=== PATIENT | female | born 1925 ===

== ENCOUNTER 2016-12-11 12:15 | Observation (INO) | payer OTHER ==
[2016-12-11 12:19] VITALS: BMI 23.8
--- NOTE | 2016-12-11 12:41 | ED PDOC ---
Arrival/HPI - General Chief Complaint: Finger,Hand,&Wrist Time Seen by Provider: 12/11/16 12:16 Historian: Patient - History of Present Illness Narrative History of Present Illness (Text): 12/11/16 12:30 A 89 year old female, whose past medical history includes diabetes, hypertension , dementia and CHF, was brought into the emergency department by EMS from longterm for infected right middle finger. Patient had her nails done at the longterm 1 week ago. Staff reported patient has been biting her nails a lot since. Patient notes swelling, pain and drainage from finger. Patient denies any fever, chills or any other complaints. PMD: Dr. Gomez Time/Duration: 1 week Symptom Course: Worsening Quality: Other Context: Home (halfway) Past Medical History - Provider Review Nursing Documentation Reviewed: Yes - Infectious Disease Hx of Infectious Diseases: None - Cardiac Hx Congestive Heart Failure: Yes Hx Hypertension: Yes - Neurological Hx Alzheimer's Disease: Yes Hx Dementia: Yes - Endocrine/Metabolic Hx Diabetes Mellitus Type 2: Yes - Musculoskeletal/Rheumatological Hx Osteoporosis: Yes - Gastrointestinal Hx Gastroesophageal Reflux: Yes - Psychiatric Hx Anxiety: Yes Hx Substance Use: No Family/Social History - Physician Review Nursing Documentation Reviewed: Yes Family/Social History: No Known Family HX Smoking Status: Never Smoked Hx Alcohol Use: No Hx Substance Use: No Allergies/Home Meds Allergies/Adverse Reactions: Allergies No Known Allergies Allergy (Verified 12/11/16 12:20) Home Medications: Home Meds Medication Instructions Recorded Confirmed Digoxin [Lanoxin] 1 tab PO DAILY 12/11/16 12/11/16 Donepezil [Aricept] 1 tab PO DAILY 12/11/16 12/11/16 Furosemide [Lasix] 1 tab PO DAILY 12/11/16 12/11/16 Ibuprofen [Motrin Tab] 1 tab PO Q6H PRN 12/11/16 12/11/16 LORazepam [Ativan] 1 tab PO HS 12/11/16 12/11/16 Ranitidine HCl [Zantac] 1 tab PO BID 12/11/16 12/11/16 Sitagliptin Phos/Metformin HCl 1 cap PO DAILY 12/11/16 12/11/16 [Janumet 50-500 mg Tablet] [id number] [Cardizem] 1 tab PO BID 12/11/16 12/11/16 Review of Systems - Physician Review All systems were reviewed & negative as marked: Yes - Review of Systems Constitutional: absent: Fevers, Night Sweats Skin: Other (Infected right middle finger) Physical Exam Vital Signs Reviewed: Yes Vital Signs Temp Pulse Resp BP Pulse Ox 12/11/16 13:17 79 18 127/64 98 12/11/16 12:21 98.2 F 84 18 128/61 97 Temperature: Afebrile Blood Pressure: Normal Pulse: Regular Respiratory Rate: Normal Appearance: Positive for: Well-Appearing, Non-Toxic, Comfortable, Other ( Elderly Latin female, angolan speaking) Pain Distress: None Mental Status: Positive for: Alert and Oriented X 3 - Systems Exam Head: Present: Atraumatic, Normocephalic Pupils: Present: PERRL Conjunctiva: Present: Normal Mouth: Present: Moist Mucous Membranes Pharnyx: Present: Normal. No: ERYTHEMA, EXUDATE Respiratory/Chest: Present: Clear to Auscultation, Good Air Exchange. No: Respiratory Distress, Accessory Muscle Use Cardiovascular: Present: Normal S1, S2. No: Murmurs Abdomen: Present: Normal Bowel Sounds. No: Tenderness, Distention, Peritoneal Signs Upper Extremity: Present: Normal ROM (Full ROM), NORMAL PULSES, Tenderness ( Tenderness to palpation of the entire distal phalanx), Swelling (Right middle finger with diffuse swelling from proximal and middle phalanx), Erythema (Right middle finger with diffuse erythema from proximal and middle phalanx). No: Cyanosis, Edema Neurological: Present: GCS=15, CN II-XII Intact, Speech Normal Skin: Present: Warm, Dry, Normal Color. No: Rashes Psychiatric: Present: Alert, Oriented x 3, Normal Insight, Normal Concentration Medical Decision Making ED Course and Treatment: 12/11/16 12:30 Impression: A 89 year old female sent in from longterm for infected right middle finger. Differential: paronychia +/- felon Plan: -- Chest xray -- EKG -- Right finger xray -- Labs -- Blood culture -- Reassess and disposition Progress Notes: 12/11/16 13:40 EKG shows sinus bradycardia at 53 BPM with PAC's, LAD, normal intervals, no ST/ T changes. Interpreted by me. 12/11/16 14:49 Patient with noted findings. Case discussed with Dr. Savage, who agrees that it is likely a paronychia without a felon - he did an I&D here in the ED. Given the extensive cellulitis associated with it, she will also need iv antibiotics and admission. Case discussed with Dr. Gomez. - Lab Interpretations Lab Results: 12/11/16 13:10 12/11/16 13:10 Lab Results 12/11/16 13:10: Sodium 138, Potassium 4.3, Chloride 98, Carbon Dioxide 30, Anion Gap 14, BUN 10, Creatinine 0.8, Est GFR ( Amer) > 60, Est GFR (Non- Af Amer) > 60, Random Glucose 91, Calcium 9.3, Magnesium 2.0, Total Bilirubin 0.3, AST 23, ALT 22, Alkaline Phosphatase 93, Lactate Dehydrogenase 396, Total Creatine Kinase 42, Troponin I < 0.01, Total Protein 7.7, Albumin 3.8, Globulin 3.8, Albumin/Globulin Ratio 1.0 L, Lipase 287 12/11/16 13:10: PT 11.2, INR 1.04, APTT 31.7 H 12/11/16 13:10: WBC 11.1 H, RBC 4.48, Hgb 12.9, Hct 39.1, MCV 87.3, MCH 28.8, MCHC 33.0, RDW 13.4, Plt Count 222, MPV 10.8, Gran % 73.9 H, Lymph % (Auto) 15.1 L, [place] % (Auto) 9.4 H, Eos % (Auto) 1.5, Baso % (Auto) 0.1, Gran # 8.18 H , Lymph # 1.7, [place] # 1.0 H, Eos # 0.2, Baso # 0.01 I have reviewed the lab results: Yes - RAD Interpretation Narrative RAD Interpretations (Text): 12/11/16 14:51 R 3rd middle finger: STS at the distal phalanx Radiology Orders: 12/11/16 13:06 HAND RIGHT 3RD DIGIT (FINGER) [RAD] Stat 12/11/16 13:07 CHEST TWO VIEWS (PA/LAT) [RAD] Stat - Medication Orders Current Medication Orders: Ampicillin Sodium/Sulbactam (Sodium 3 gm/ Sodium Chloride) 100 mls @ 100 mls/ hr IVPB STAT STA PRN Reason: Protocol Stop: 12/11/16 15:19 Vancomycin HCl 1 gm/ Sodium (Chloride) 250 mls @ 133.333 mls/hr IV STAT STA PRN Reason: Protocol Stop: 12/11/16 16:12 Discontinued Medications Bupivacaine HCl (Marcaine 0.5%) Confirm Administered Dose 30 ml .ROUTE .STK-MED ONE Stop: 12/11/16 13:15 Lidocaine HCl (Lidocaine 1% (20ml)) Confirm Administered Dose 20 ml .ROUTE .STK- MED ONE Stop: 12/11/16 13:15 - Scribe Statement The provider has reviewed the documentation as recorded by the Rhonda Roque Provider Scribe Attestation: All medical record entries made by the Scribe were at my direction and personally dictated by me. I have reviewed the chart and agree that the record accurately reflects my personal performance of the history, physical exam, medical decision making, and the department course for this patient. I have also personally directed, reviewed, and agree with the discharge instructions and disposition. Disposition/Present on Arrival - Present on Arrival Any Indicators Present on Arrival: No History of DVT/PE: No History of Uncontrolled Diabetes: No Urinary Catheter: No History of Decub. Ulcer: No History Surgical Site Infection Following: None - Disposition Have Diagnosis and Disposition been Completed?: Yes Diagnosis: Paronychia of finger of right hand Disposition: HOSPITALIZED Disposition Time: 14:14 Patient Plan: Admission Condition: FAIR
[2016-12-11] MEDS ORDERED: Lidocaine 1% Inj (20ml) ONE (13:14)
[2016-12-11] MEDS ORDERED: Bupivacaine 0.5% Inj(30mL) ONE (13:14)
[2016-12-11 13:43] LABS: BASO # 0.01 K/mm3 (0.0-2.0); BASO % 0.1 % (0.0-3.0); EOS # 0.2 (0.0-0.7); EOS % 1.5 % (1.5-5.0); GRAN # 8.18 (1.4-6.5); GRAN % 73.9 % (50.0-68.0); HEMOGLOBIN 12.9 gm/dL (12.0-16.0); LYMPH # 1.7 (1.2-3.4); LYMPH % 15.1 % (22.0-35.0); MEAN CELL VOLUME 87.3 fL (80.0-105.0); MEAN CORPUSCULAR HEMOGLOBIN 28.8 pg (25.0-35.0); MEAN PLATELET VOLUME 10.8 fl (7.0-11.0); MONO % 9.4 % (1.0-6.0); PLATELET COUNT 222 10^3/uL (120.0-450.0); RBC 4.48 10^6/uL (3.5-6.1); RED CELL DISTRIBUTION WIDTH 13.4 % (11.5-14.5); WHITE BLOOD COUNT 11.1 10^3/ul (4.5-11.0)
[2016-12-11 13:49] LABS: INR 1.04 (0.93-1.08); PARTIAL THROMBOPLASTIN TIME 31.7 Seconds (23.7-30.8); PROTHROMBIN TIME 11.2 Seconds (9.9-11.8)
[2016-12-11 13:50] LABS: ALBUMIN 3.8 g/dL (3.0-4.8); ALT/SGPT 22 U/L (7-56); AST/SGOT 23 U/L (15-39); BLOOD UREA NITROGEN 10 mg/dL (7-21); CALCIUM 9.3 mg/dL (8.4-10.5); GFR AFRICAN-AMERICAN > 60; GFR NON-AFRICAN AMERICAN > 60; LIPASE 287 U/L (23-300)
[2016-12-11 14:10] LABS: TROPONIN I < 0.01 ng/mL
[2016-12-11] MEDS ORDERED: Ampicillin/Sulbactam 3 GM in Sodium Chloride 0.9% 100 ML IVPB STA (14:20)
--- NOTE | 2016-12-11 14:57 | RAD ---
PROCEDURE: Right Hand Radiographs. HISTORY: R 3rd finger infection COMPARISON: None. FINDINGS: BONES: Normal. No fracture. No evidence of osteomyelitis JOINTS: Normal. No osteoarthritic changes. SOFT TISSUES: Soft tissue swelling OTHER FINDINGS: None. IMPRESSION: Soft tissue swelling with no evidence of osteomyelitis
--- NOTE | 2016-12-11 14:58 | RAD ---
HISTORY: finger infection, admission COMPARISON: No prior. TECHNIQUE: Chest PA and lateral FINDINGS: LUNGS: No active pulmonary disease. PLEURA: No significant pleural effusion identified. No pneumothorax apparent. CARDIOVASCULAR: Normal. OSSEOUS STRUCTURES: No significant abnormalities. VISUALIZED UPPER ABDOMEN: Normal. OTHER FINDINGS: None. IMPRESSION: No active disease.
[2016-12-11] MEDS ORDERED: Vancomycin 750mg 750 MG/250 ML BAG IVPB SCH (17:00)
[2016-12-11] MEDS: Ampicillin/Sulbactam 3 GM in Sodium Chloride 0.9% 100 ML IVPB SCH ×2 (18:00→23:45)
[2016-12-11] MEDS: Vancomycin 1gm in NS 250ml 1 GM/250 ML BAG IVPB SCH (20:27)
[2016-12-11] MEDS ORDERED: Pneumococcal 23-Valent Vaccine IM ONE (21:30)
[2016-12-12] MEDS: Ampicillin/Sulbactam 3 GM in Sodium Chloride 0.9% 100 ML IVPB SCH ×4 (05:33→23:09)
[2016-12-12] MEDS: Vancomycin 1gm in NS 250ml 1 GM/250 ML BAG IVPB SCH ×2 (07:04→21:11)
--- NOTE | 2016-12-12 07:08 | CP.PCM.HP ---
<Claudette Wilks - Last Filed: 12/12/16 09:19> History of Present Illness - History of Present Illness History of Present Illness: CC: Sent from [facility] for hand infection Patient is an 89 y/o with pmh of htn, NIDDM2, dementia and chf sent fro, [facility] 2nd to right middle finger infection. As per nursing staff, patient had her nails done few days ago, and developed swelling and erythema of the finger. Patient is confused and non verbal, however shows signs of distress of the finger. H&P and ROS is limited due to mental status. PMH: As mentioned above. PSH: unable to obtain Social: From [facility]. Present on Admission - Present on Admission Any Indicators Present on Admission: No History of DVT/PE: No History of Uncontrolled Diabetes: No Urinary Catheter: No Decubitus Ulcer Present: No Review of Systems - Review of Systems Systems not reviewed;Unavailable: Dementia Past Patient History - Infectious Disease Hx of Infectious Diseases: None - Past Social History Smoking Status: Unknown If Ever Smoked Alcohol: None Home Situation {Lives}: Shelter - CARDIAC Hx Cardiac Disorders: Yes Hx Congestive Heart Failure: Yes Hx Hypertension: Yes - PULMONARY Hx Respiratory Disorders: No - NEUROLOGICAL Hx Neurological Disorder: Yes Hx Alzheimer's Disease: Yes Hx Dementia: Yes - HEENT Hx HEENT Problems: No - RENAL Hx Chronic Kidney Disease: No - ENDOCRINE/METABOLIC Hx Endocrine Disorders: Yes Hx Diabetes Mellitus Type 2: Yes - HEMATOLOGICAL/ONCOLOGICAL Hx Blood Disorders: No - INTEGUMENTARY Hx Dermatological Problems: Yes Other/Comment: PARONYCHIA OF R MID FINGER.POST I/D - MUSCULOSKELETAL/RHEUMATOLOGICAL Hx Musculoskeletal Disorders: Yes Hx Falls: (UNKNOWN) Hx Osteoporosis: Yes Hx Unsteady Gait: Yes - GASTROINTESTINAL Hx Gastrointestinal Disorders: Yes Hx Gastroesophageal Reflux: Yes HX Swallowing Problems: Yes (ON PUREED DIET AT [facility]) - GENITOURINARY/GYNECOLOGICAL Hx Genitourinary Disorders: Yes Hx Incontinence: Yes - PSYCHIATRIC Hx Psychophysiologic Disorder: Yes Hx Anxiety: Yes Hx Substance Use: No (UNKNOWN) Meds Allergies/Adverse Reactions: Allergies Allergy/AdvReac Type Severity Reaction Status Date / Time No Known Allergies Allergy Verified 12/11/16 15:13 Physical Exam - Constitutional Appears: No Acute Distress, Cachectic, Chronically Ill - Head Exam Head Exam: ATRAUMATIC, NORMAL INSPECTION, NORMOCEPHALIC - Eye Exam Eye Exam: EOMI, Normal appearance, PERRL. absent: Scleral icterus Pupil Exam: NORMAL ACCOMODATION, PERRL - ENT Exam ENT Exam: Mucous Membranes Moist, Normal Exam - Neck Exam Neck exam: Positive for: Normal Inspection. Negative for: Lymphadenopathy - Respiratory Exam Respiratory Exam: Clear to Auscultation Bilateral, NORMAL BREATHING PATTERN. absent: Rales, Rhonchi, Wheezes, Stridor - Cardiovascular Exam Cardiovascular Exam: REGULAR RHYTHM, +S1, +S2, Systolic Murmur - GI/Abdominal Exam GI & Abdominal Exam: Distended, Normal Bowel Sounds. absent: Firm, Guarding, Soft, Tenderness - Extremities Exam Extremities exam: Negative for: pedal edema - Back Exam Back exam: NORMAL INSPECTION - Neurological Exam Neurological exam: CN II-XII Intact, Reflexes Normal Additional comments: Demented. - Psychiatric Exam Psychiatric exam: Anxious - Skin Additional comments: Right mid finger with diffuse erythema, and edema, warm to touch. Results - Vital Signs Recent Vital Signs: Last Vital Signs Temp 98.2 F 12/11/16 21:08 Pulse 60 12/11/16 21:08 Resp 18 12/11/16 21:08 BP 146/68 12/11/16 21:08 Pulse Ox 95 12/11/16 16:20 - Labs Result Diagrams: 12/12/16 08:40 12/12/16 08:40 Assessment & Plan - Assessment and Plan (Free Text) Assessment: 1) Right middle finger cellulites r/o osteomyolitis versus herpetic sis 2) htn 3) DM 4) chf 5) Dementia Plan: X-ray of the right middle finger revealed soft tissue swelling. Will obtain CT to r/o osteomyolitis. Currently on vanco and Unasyn. Patient had mild leukocysotis, but is afebrile. Blood culture and wound cultures pending. ID and orthopedic following. ID added famvir for possible herpetic lesion. Will continue asa, digoxin, Cardizem and Lasix for htn and CHF. Continue with aricept for dementia, Ativan for agitation. ISS for DM. Pepcid and SCDs for DVT and gi prophylaxis. Patient seen, examined and case discussed with Dr Gomez. - Date & Time Date: 12/12/16 Time: 07:20 <Chalo Gomez S - Last Filed: 12/13/16 08:30> Results - Vital Signs Recent Vital Signs: Last Vital Signs Temp 98.2 F 12/13/16 07:57 Pulse 60 12/13/16 07:57 Resp 20 12/13/16 07:57 BP 131/64 12/13/16 07:57 Pulse Ox 96 12/13/16 07:57 - Labs Result Diagrams: 12/13/16 08:00 12/12/16 08:40 Labs: Laboratory Results - last 24 hr 12/12/16 12/12/16 12/13/16 08:40 08:40 08:00 WBC 8.6 D 8.7 RBC 4.63 4.47 Hgb 13.2 12.8 Hct 39.9 38.2 MCV 86.2 85.5 MCH 28.5 28.6 MCHC 33.1 33.5 RDW 13.3 13.3 Plt Count 200 212 MPV 10.6 10.4 Gran % 72.8 H 69.6 H Lymph % (Auto) 16.5 L 19.7 L [place] % (Auto) 8.4 H 8.8 H Eos % (Auto) 2.1 1.7 Baso % (Auto) 0.2 0.2 Gran # 6.28 6.03 Lymph # 1.4 1.7 [place] # 0.7 H 0.8 H Eos # 0.2 0.2 Baso # 0.02 0.02 Sodium 137 Potassium 4.0 Chloride 99 Carbon Dioxide 28 Anion Gap 14 BUN 9 Creatinine 0.7 Est GFR ( Amer) > 60 Est GFR (Non-Af Amer) > 60 Random Glucose 104 Calcium 9.0 Assessment & Plan - Assessment and Plan (Free Text) Plan: Pt seen and examimed. Note of the resident was reviewed and I agree with it. The pt was seen at [facility] and sent to the hospital for evaluation. She failed outpt treatement. She has advanced dementia and Delerium. R/O Osteo with CT. ID evaluation, spoke to ID to r/o Moshe Pierre as well. Follow labs. Unable to call family as the number was not in chart.
--- NOTE | 2016-12-12 07:57 | CARD ---
APPROVED REPORT EKG Measurement Heart [id number] <Conclusion> Atrial fibrillation with slow ventricular response Left axis deviation, LAHB Low voltage QRS PRWP NSSTW changes
[2016-12-12 08:57] LABS: BASO # 0.02 K/mm3 (0.0-2.0); BASO % 0.2 % (0.0-3.0); EOS # 0.2 (0.0-0.7); EOS % 2.1 % (1.5-5.0); GRAN # 6.28 (1.4-6.5); GRAN % 72.8 % (50.0-68.0); HEMOGLOBIN 13.2 gm/dL (12.0-16.0); LYMPH # 1.4 (1.2-3.4); LYMPH % 16.5 % (22.0-35.0); MEAN CELL VOLUME 86.2 fL (80.0-105.0); MEAN CORPUSCULAR HEMOGLOBIN 28.5 pg (25.0-35.0); MEAN CORPUSCULAR HGB CONC 33.1 g/dl (31.0-37.0); MEAN PLATELET VOLUME 10.6 fl (7.0-11.0); MONO # 0.7 (0.1-0.6); MONO % 8.4 % (1.0-6.0); PLATELET COUNT 200 10^3/uL (120.0-450.0); RBC 4.63 10^6/uL (3.5-6.1); RED CELL DISTRIBUTION WIDTH 13.3 % (11.5-14.5); WHITE BLOOD COUNT 8.6 10^3/ul (4.5-11.0)
[2016-12-12 09:06] LABS: BLOOD UREA NITROGEN 9 mg/dL (7-21); GFR AFRICAN-AMERICAN > 60; GFR NON-AFRICAN AMERICAN > 60
--- NOTE | 2016-12-12 09:38 | CON ---
DATE: 12/11/2016 ORTHOPEDIC CONSULT AND PROCEDURE REPORT The patient is in the emergency room brought in from [facility] for paronychia, which is infection of the nail bed of the third digit right hand. Paronychia with drainage and inflammation and swelling, but no evidence of felon as the pulp of the finger is soft. So with local anesthesia, we did a digital block with xylocaine and Marcaine to anesthetize the third digit of the right hand and gap will be undermined the paronychial area to express the fluid that was in there which is serosanguineous and turbid fluid. The process has been going on for about a week, and hopefully, this will accomplish some resolution of her infection along with the antibiotics. We will get an ID consult, and I was unable to put a packing because the patient is very uncooperative and like a usp patient, she does not communicate well and she keeps on biting her finger nail that could add to the problem that she has, so I put an extra large dressing on the right hand like a mitten to protect her from herself. We will get the culture of the infcted fluid to come back and ID consult and treat the infection until it is resolved and get an x-ray to see if any bone involvement. It is about 2 o'clock in the afternoon. Umer Savage DO JORGE
[2016-12-12] MEDS ORDERED: Non Formulary Medication (Calcium Carbonate/Vitamin D3 [Calcium 600 + Vit D Tablet] 1 TAB) PO SCH (10:00)
[2016-12-12] MEDS ORDERED: Enoxaparin 40 mg Syringe SC SCH (10:00)
--- NOTE | 2016-12-12 11:12 | CT ---
PROCEDURE: CT of the right hand without contrast HISTORY: right 3rd finger, r/o osteomyolitis COMPARISON: X-ray 12/11/2016 TECHNIQUE: CT of the right hand was performed with sagittal and coronal reconstructions. FINDINGS: There is soft tissue swelling in the 3rd digit. There is no bony destruction to suggest osteomyelitis. There is no fracture or foreign body. IMPRESSION: Soft tissue swelling 3rd digit. The study is otherwise negative
[2016-12-12] MEDS: Insulin Lispro (humaLOG) LOW Coverage SC SCH ×3 (11:56→22:46)
[2016-12-12] MEDS: Digoxin 125 mcg (0.125 mg) Tab PO SCH ×2 (11:58→17:29)
--- NOTE | 2016-12-12 15:43 | CP.PCM.CON ---
History of Present Illness - History of Present Illness History of Present Illness: 89 year old female with PMH of DM, HTN, dementia, CAD, chronic CHF was brought in from the half-way for infection of her right middle finger which she apparently has been biting. There is no note of animal contact, no vomiting, no fevers, no diarrhea. Infectious Diseases consult is requested to further evaluate and manage. Review of Systems - Review of Systems All systems: reviewed and no additional remarkable complaints except (as per HPI ) Past Patient History - Infectious Disease Hx of Infectious Diseases: None - Past Social History Smoking Status: Never Smoked - CARDIAC Hx Congestive Heart Failure: Yes Hx Hypertension: Yes - NEUROLOGICAL Hx Alzheimer's Disease: Yes Hx Dementia: Yes - ENDOCRINE/METABOLIC Hx Diabetes Mellitus Type 2: Yes - MUSCULOSKELETAL/RHEUMATOLOGICAL Hx Osteoporosis: Yes - GASTROINTESTINAL Hx Gastroesophageal Reflux: Yes - PSYCHIATRIC Hx Anxiety: Yes Hx Substance Use: No Meds Allergies/Adverse Reactions: Allergies Allergy/AdvReac Type Severity Reaction Status Date / Time No Known Allergies Allergy Verified 12/11/16 15:13 - Medications Medications: Current Medications Vancomycin HCl 1 gm/ Sodium (Chloride) 250 mls @ 133.333 mls/hr IV STAT STA PRN Reason: Protocol Stop: 12/11/16 16:12 Physical Exam - Constitutional Appears: Non-toxic, No Acute Distress - Head Exam Head Exam: NORMAL INSPECTION - ENT Exam ENT Exam: Mucous Membranes Moist - Neck Exam Neck exam: Negative for: Meningismus - Respiratory Exam Respiratory Exam: Decreased Breath Sounds - Cardiovascular Exam Cardiovascular Exam: +S1, +S2 - GI/Abdominal Exam GI & Abdominal Exam: Soft. absent: Tenderness - Extremities Exam Additional comments: right hand with dressing in place Results - Vital Signs Recent Vital Signs: Last Vital Signs Temp 98.2 F 12/11/16 12:21 Pulse 74 12/11/16 15:10 Resp 18 12/11/16 15:10 BP 125/68 12/11/16 15:10 Pulse Ox 98 12/11/16 15:10 - Labs Result Diagrams: 12/12/16 08:40 12/12/16 08:40 Assessment & Plan - Assessment and Plan (Free Text) Plan: Assessment Right hand 3rd digit skin and skin structure infection, R/O herpetic sis DM HTN dementia CAD chronic CHF Plan Patient has been started on Vancomycin and Unasyn; also added Famciclovir; follow up wound and blood cx will monitor clinically
--- NOTE | 2016-12-12 22:03 | CP.PCM.PN ---
Subjective - Date & Time of Evaluation Date of Evaluation: 12/12/16 Time of Evaluation: 20:30 - Subjective Subjective: Patient seen because she is confused and combative,has pulled out her iv s 3 times today.She needs the iv line for iv antibiotics. She is admitted for an infected R middle finger. Patient is on an Avasys moniter. PMH:DM,HTN,Dementia,CAD,Chonic CHF Objective - Vital Signs/Intake and Output Vital Signs (last 24 hours): Temp Pulse Resp BP Pulse Ox 98.1 F 58 L 20 132/64 96 12/12/16 16:30 12/12/16 17:20 12/12/16 16:30 12/12/16 17:20 12/12/16 16:30 Intake and Output: 12/12/16 12/13/16 18:59 06:59 Intake Total 180 Balance 180 - Medications Medications: Current Medications Ascorbic Acid (Vitamin C 500 Mg Tab) 500 mg PO DAILY [facility] Last Admin: 12/12/16 11:54 Dose: 500 mg Aspirin (Aspirin Chewable) 81 mg PO DAILY [facility] Last Admin: 12/12/16 11:54 Dose: 81 mg Digoxin (Lanoxin) 0.125 mg PO 1400 [facility] Last Admin: 12/12/16 17:29 Dose: Not Given Diltiazem HCl (Cardizem) 60 mg PO BID [facility] Last Admin: 12/12/16 17:20 Dose: 60 mg Donepezil HCl (Aricept) 10 mg PO DAILY [facility] Last Admin: 12/12/16 11:55 Dose: 10 mg Famciclovir (Famvir) 500 mg PO Q8 [facility] Last Admin: 12/12/16 17:35 Dose: 500 mg Famotidine (Pepcid) 20 mg PO 1000,2200 [facility] Last Admin: 12/12/16 11:55 Dose: 20 mg Furosemide (Lasix) 40 mg PO DAILY [facility] Last Admin: 12/12/16 11:54 Dose: 40 mg Ampicillin Sodium/Sulbactam (Sodium 3 gm/ Sodium Chloride) 100 mls @ 200 mls/ hr IVPB Q6 TJ PRN Reason: Protocol Last Admin: 12/12/16 17:35 Dose: 200 mls/hr Vancomycin HCl (Vancomycin 1gm) 1 gm in 250 mls @ 167 mls/hr IVPB Q12H TJ PRN Reason: Protocol Last Admin: 12/12/16 07:04 Dose: 167 mls/hr Insulin Human Lispro (Humalog Low) 0 units SC ACHS TJ PRN Reason: Protocol Last Admin: 12/12/16 17:26 Dose: Not Given Lorazepam (Ativan) 1 mg PO HS TJ PRN Reason: Protocol Last Admin: 12/11/16 20:16 Dose: 1 mg Lorazepam (Ativan) 0.5 mg PO TID TJ PRN Reason: Protocol Last Admin: 12/12/16 17:26 Dose: Not Given - Labs Labs: 12/12/16 08:40 12/12/16 08:40 PT 11.2 Seconds (9.9-11.8) 12/11/16 13:10 INR 1.04 (0.93-1.08) 12/11/16 13:10 APTT 31.7 Seconds (23.7-30.8) H 12/11/16 13:10 - Constitutional Appears: No Acute Distress - Head Exam Head Exam: ATRAUMATIC, NORMAL INSPECTION, NORMOCEPHALIC - Eye Exam Eye Exam: PERRL - ENT Exam ENT Exam: Mucous Membranes Moist - Neck Exam Neck Exam: Normal Inspection - Respiratory Exam Respiratory Exam: Decreased Breath Sounds - Cardiovascular Exam Cardiovascular Exam: REGULAR RHYTHM - GI/Abdominal Exam GI & Abdominal Exam: Soft, Normal Bowel Sounds. absent: Tenderness - Extremities Exam Extremities Exam: absent: Calf Tenderness - Neurological Exam Additional comments: confused - Skin Skin Exam: Dry, Warm Assessment and Plan - Assessment and Plan (Free Text) Assessment: Confusion Dementia Plan: Bilateral soft wrist restraints ordered.
[2016-12-13] MEDS: Ampicillin/Sulbactam 3 GM in Sodium Chloride 0.9% 100 ML IVPB SCH ×3 (06:59→17:50)
--- NOTE | 2016-12-13 07:27 | CP.PCM.PN ---
<Claudette Wilks - Last Filed: 12/13/16 09:36> Subjective - Date & Time of Evaluation Date of Evaluation: 12/13/16 Time of Evaluation: 07:25 - Subjective Subjective: Resident progress note for Dr Gomez. Nursing and Dr Avila notes reviewed, patient was agitated and pulled out her IV overnight, was placed on soft mitten restrains. Patient is more awake, alert and verbal this morning. Patient able to stay in spinach that she has no pain. Remains afebrile. Objective - Vital Signs/Intake and Output Vital Signs (last 24 hours): Temp Pulse Resp BP Pulse Ox 98.1 F 58 L 20 132/64 96 12/12/16 16:30 12/12/16 17:20 12/12/16 16:30 12/12/16 17:20 12/12/16 16:30 Intake and Output: 12/13/16 12/13/16 06:59 18:59 Intake Total 480 Balance 480 - Medications Medications: Current Medications Ascorbic Acid (Vitamin C 500 Mg Tab) 500 mg PO DAILY [facility] Last Admin: 12/12/16 11:54 Dose: 500 mg Aspirin (Aspirin Chewable) 81 mg PO DAILY [facility] Last Admin: 12/12/16 11:54 Dose: 81 mg Digoxin (Lanoxin) 0.125 mg PO 1400 [facility] Last Admin: 12/12/16 17:29 Dose: Not Given Diltiazem HCl (Cardizem) 60 mg PO BID [facility] Last Admin: 12/12/16 17:20 Dose: 60 mg Donepezil HCl (Aricept) 10 mg PO DAILY [facility] Last Admin: 12/12/16 11:55 Dose: 10 mg Famciclovir (Famvir) 500 mg PO Q8 [facility] Last Admin: 12/13/16 06:53 Dose: 500 mg Famotidine (Pepcid) 20 mg PO 1000,2200 [facility] Last Admin: 12/12/16 22:55 Dose: 20 mg Furosemide (Lasix) 40 mg PO DAILY [facility] Last Admin: 12/12/16 11:54 Dose: 40 mg Ampicillin Sodium/Sulbactam (Sodium 3 gm/ Sodium Chloride) 100 mls @ 200 mls/ hr IVPB Q6 [facility] PRN Reason: Protocol Last Admin: 12/12/16 23:09 Dose: 200 mls/hr Vancomycin HCl (Vancomycin 1gm) 1 gm in 250 mls @ 167 mls/hr IVPB Q12H TJ PRN Reason: Protocol Last Admin: 12/12/16 21:11 Dose: 167 mls/hr Insulin Human Lispro (Humalog Low) 0 units SC ACHS TJ PRN Reason: Protocol Last Admin: 12/12/16 22:46 Dose: Not Given Lorazepam (Ativan) 1 mg PO HS TJ PRN Reason: Protocol Last Admin: 12/12/16 21:20 Dose: 1 mg Lorazepam (Ativan) 0.5 mg PO TID TJ PRN Reason: Protocol Last Admin: 12/12/16 17:26 Dose: Not Given - Labs Labs: 12/12/16 08:40 12/12/16 08:40 PT 11.2 Seconds (9.9-11.8) 12/11/16 13:10 INR 1.04 (0.93-1.08) 12/11/16 13:10 APTT 31.7 Seconds (23.7-30.8) H 12/11/16 13:10 - Constitutional Appears: No Acute Distress, Confused, Cachectic - Head Exam Head Exam: ATRAUMATIC, NORMAL INSPECTION, NORMOCEPHALIC - Eye Exam Eye Exam: EOMI, Normal appearance, PERRL. absent: Scleral icterus - ENT Exam ENT Exam: Mucous Membranes Moist - Neck Exam Neck Exam: Full ROM, Normal Inspection - Respiratory Exam Respiratory Exam: Clear to Ausculation Bilateral, NORMAL BREATHING PATTERN. absent: Rales, Rhonchi, Wheezes, Respiratory Distress, Stridor - Cardiovascular Exam Cardiovascular Exam: REGULAR RHYTHM, +S1, +S2, Murmur - GI/Abdominal Exam GI & Abdominal Exam: Soft, Normal Bowel Sounds. absent: Distended, Firm, Guarding, Rigid, Tenderness - Extremities Exam Extremities Exam: absent: Pedal Edema - Back Exam Back Exam: NORMAL INSPECTION - Neurological Exam Neurological Exam: Awake Additional comments: Patient is more verbal today, with baseline dementia. - Psychiatric Exam Psychiatric exam: Flat Affect - Skin Additional comments: Right middle finger- Assessment and Plan - Assessment and Plan (Free Text) Assessment: 1) Right middle finger cellulites 2) HTN 3) NIDDM2 4) Dementia 5) CHF Plan: CT of the 2nd middle finger yesterday with no osteomyolitis, gram positive cocci on wound culture pending sensitivity, no growth so far on bcx, patient is afebrile and leukocytosis resolved. ID and ortho following. On vanco, Unasyn and famvir. Will continue asa, digoxin, Cardizem and Lasix for htn and CHF. Continue with aricept for dementia, Ativan for agitation. ISS for DM. Pepcid and SCDs for DVT and gi prophylaxis. Patient seen, examined, and case discussed with Dr Gomez. <Chalo Gomez S - Last Filed: 12/13/16 18:21> Objective - Vital Signs/Intake and Output Vital Signs (last 24 hours): Temp Pulse Resp BP Pulse Ox 97.8 F 86 20 175/70 H 94 L 12/13/16 16:00 12/13/16 17:47 12/13/16 16:00 12/13/16 17:47 12/13/16 16:00 Intake and Output: 12/13/16 12/13/16 06:59 18:59 Intake Total 480 480 Balance 480 480 - Medications Medications: Current Medications Ascorbic Acid (Vitamin C 500 Mg Tab) 500 mg PO DAILY [facility] Last Admin: 12/13/16 11:01 Dose: 500 mg Aspirin (Aspirin Chewable) 81 mg PO DAILY [facility] Last Admin: 12/13/16 10:59 Dose: 81 mg Digoxin (Lanoxin) 0.125 mg PO 1400 [facility] Last Admin: 12/13/16 14:20 Dose: 0.125 mg Diltiazem HCl (Cardizem) 60 mg PO BID [facility] Last Admin: 12/13/16 17:47 Dose: 60 mg Donepezil HCl (Aricept) 10 mg PO DAILY [facility] Last Admin: 12/13/16 10:59 Dose: 10 mg Famciclovir (Famvir) 500 mg PO Q8 [facility] Last Admin: 12/13/16 14:19 Dose: 500 mg Famotidine (Pepcid) 20 mg PO 1000,2200 [facility] Last Admin: 12/13/16 11:01 Dose: 20 mg Furosemide (Lasix) 40 mg PO DAILY [facility] Last Admin: 12/13/16 11:00 Dose: 40 mg Ampicillin Sodium/Sulbactam (Sodium 3 gm/ Sodium Chloride) 100 mls @ 200 mls/ hr IVPB Q6 [facility] PRN Reason: Protocol Last Admin: 12/13/16 17:50 Dose: 200 mls/hr Vancomycin HCl (Vancomycin 1gm) 1 gm in 250 mls @ 167 mls/hr IVPB Q12H TJ PRN Reason: Protocol Last Admin: 12/13/16 11:01 Dose: 167 mls/hr Insulin Human Lispro (Humalog Low) 0 units SC ACHS TJ PRN Reason: Protocol Last Admin: 12/13/16 16:58 Dose: Not Given Lorazepam (Ativan) 1 mg PO HS TJ PRN Reason: Protocol Last Admin: 12/12/16 21:20 Dose: 1 mg Lorazepam (Ativan) 0.5 mg PO TID TJ PRN Reason: Protocol Last Admin: 12/13/16 17:47 Dose: 0.5 mg - Labs Labs: 12/13/16 08:00 12/13/16 08:00 PT 11.2 Seconds (9.9-11.8) 12/11/16 13:10 INR 1.04 (0.93-1.08) 12/11/16 13:10 APTT 31.7 Seconds (23.7-30.8) H 12/11/16 13:10 Assessment and Plan - Assessment and Plan (Free Text) Plan: Pt seen and examined. Resident note reviewed. Agree with the note. Spoke to son to give him update. She has delerium. On Ativan.
[2016-12-13 08:20] LABS: BASO # 0.02 K/mm3 (0.0-2.0); BASO % 0.2 % (0.0-3.0); EOS # 0.2 (0.0-0.7); EOS % 1.7 % (1.5-5.0); GRAN # 6.03 (1.4-6.5); GRAN % 69.6 % (50.0-68.0); HEMOGLOBIN 12.8 gm/dL (12.0-16.0); LYMPH # 1.7 (1.2-3.4); LYMPH % 19.7 % (22.0-35.0); MEAN CELL VOLUME 85.5 fL (80.0-105.0); MEAN CORPUSCULAR HEMOGLOBIN 28.6 pg (25.0-35.0); MEAN CORPUSCULAR HGB CONC 33.5 g/dl (31.0-37.0); MEAN PLATELET VOLUME 10.4 fl (7.0-11.0); MONO # 0.8 (0.1-0.6); MONO % 8.8 % (1.0-6.0); PLATELET COUNT 212 10^3/uL (120.0-450.0); RBC 4.47 10^6/uL (3.5-6.1); RED CELL DISTRIBUTION WIDTH 13.3 % (11.5-14.5); WHITE BLOOD COUNT 8.7 10^3/ul (4.5-11.0)
[2016-12-13 08:29] LABS: BLOOD UREA NITROGEN 11 mg/dL (7-21); CALCIUM 8.8 mg/dL (8.4-10.5); GFR AFRICAN-AMERICAN > 60; GFR NON-AFRICAN AMERICAN > 60
[2016-12-13] MEDS: Insulin Lispro (humaLOG) LOW Coverage SC SCH ×4 (08:53→23:00)
[2016-12-13] MEDS: Vancomycin 1gm in NS 250ml 1 GM/250 ML BAG IVPB SCH ×2 (11:01→22:00)
--- NOTE | 2016-12-13 12:16 | CP.PCM.PN ---
Subjective - Date & Time of Evaluation Date of Evaluation: 12/13/16 Time of Evaluation: 10:45 - Subjective Subjective: Comfortable in bed, not in distress, still with pain in the right 3rd finger. No fevers overnight. Objective - Vital Signs/Intake and Output Vital Signs (last 24 hours): Temp Pulse Resp BP Pulse Ox 98.1 F 58 L 20 132/64 96 12/12/16 16:30 12/12/16 17:20 12/12/16 16:30 12/12/16 17:20 12/12/16 16:30 Intake and Output: 12/13/16 12/13/16 06:59 18:59 Intake Total 480 Balance 480 - Medications Medications: Current Medications Ascorbic Acid (Vitamin C 500 Mg Tab) 500 mg PO DAILY [facility] Last Admin: 12/12/16 11:54 Dose: 500 mg Aspirin (Aspirin Chewable) 81 mg PO DAILY [facility] Last Admin: 12/12/16 11:54 Dose: 81 mg Digoxin (Lanoxin) 0.125 mg PO 1400 [facility] Last Admin: 12/12/16 17:29 Dose: Not Given Diltiazem HCl (Cardizem) 60 mg PO BID [facility] Last Admin: 12/12/16 17:20 Dose: 60 mg Donepezil HCl (Aricept) 10 mg PO DAILY [facility] Last Admin: 12/12/16 11:55 Dose: 10 mg Famciclovir (Famvir) 500 mg PO Q8 [facility] Last Admin: 12/13/16 06:53 Dose: 500 mg Famotidine (Pepcid) 20 mg PO 1000,2200 [facility] Last Admin: 12/12/16 22:55 Dose: 20 mg Furosemide (Lasix) 40 mg PO DAILY [facility] Last Admin: 12/12/16 11:54 Dose: 40 mg Ampicillin Sodium/Sulbactam (Sodium 3 gm/ Sodium Chloride) 100 mls @ 200 mls/ hr IVPB Q6 [facility] PRN Reason: Protocol Last Admin: 12/12/16 23:09 Dose: 200 mls/hr Vancomycin HCl (Vancomycin 1gm) 1 gm in 250 mls @ 167 mls/hr IVPB Q12H TJ PRN Reason: Protocol Last Admin: 12/12/16 21:11 Dose: 167 mls/hr Insulin Human Lispro (Humalog Low) 0 units SC ACHS [facility] PRN Reason: Protocol Last Admin: 12/12/16 22:46 Dose: Not Given Lorazepam (Ativan) 1 mg PO HS TJ PRN Reason: Protocol Last Admin: 12/12/16 21:20 Dose: 1 mg Lorazepam (Ativan) 0.5 mg PO TID TJ PRN Reason: Protocol Last Admin: 12/12/16 17:26 Dose: Not Given - Labs Labs: 12/12/16 08:40 12/12/16 08:40 PT 11.2 Seconds (9.9-11.8) 12/11/16 13:10 INR 1.04 (0.93-1.08) 12/11/16 13:10 APTT 31.7 Seconds (23.7-30.8) H 12/11/16 13:10 - Constitutional Appears: Non-toxic, No Acute Distress - Head Exam Head Exam: NORMAL INSPECTION - ENT Exam ENT Exam: Mucous Membranes Moist - Neck Exam Neck Exam: absent: Meningismus - Respiratory Exam Respiratory Exam: Decreased Breath Sounds - Cardiovascular Exam Cardiovascular Exam: +S1, +S2 - GI/Abdominal Exam GI & Abdominal Exam: Soft. absent: Tenderness - Extremities Exam Additional comments: right 3rd finger with dry lesions, some tenderness noted, no pus or blood noted Assessment and Plan - Assessment and Plan (Free Text) Plan: Assessment Right hand 3rd digit skin and skin structure infection, R/O herpetic sis; growing E. faecalis and Staph aureus DM HTN dementia CAD chronic CHF Plan continue Vancomycin and Unasyn (day 2), to complete 5-7 days of therapy; also continue Famciclovir to complete 7 days; reviewed wound cx results; blood cx are negative
[2016-12-13] MEDS: Digoxin 125 mcg (0.125 mg) Tab PO SCH (14:20)
--- NOTE | 2016-12-13 23:37 | CP.PCM.PN ---
Subjective - Date & Time of Evaluation Date of Evaluation: 12/13/16 Time of Evaluation: 23:37 - Subjective Subjective: draft restraint Objective - Vital Signs/Intake and Output Vital Signs (last 24 hours): Temp Pulse Resp BP Pulse Ox 97.8 F 86 20 175/70 H 94 L 12/13/16 16:00 12/13/16 17:47 12/13/16 16:00 12/13/16 17:47 12/13/16 16:00 Intake and Output: 12/13/16 12/14/16 18:59 06:59 Intake Total 480 60 Balance 480 60 - Medications Medications: Current Medications Ascorbic Acid (Vitamin C 500 Mg Tab) 500 mg PO DAILY [facility] Last Admin: 12/13/16 11:01 Dose: 500 mg Aspirin (Aspirin Chewable) 81 mg PO DAILY [facility] Last Admin: 12/13/16 10:59 Dose: 81 mg Digoxin (Lanoxin) 0.125 mg PO 1400 [facility] Last Admin: 12/13/16 14:20 Dose: 0.125 mg Diltiazem HCl (Cardizem) 60 mg PO BID [facility] Last Admin: 12/13/16 17:47 Dose: 60 mg Donepezil HCl (Aricept) 10 mg PO DAILY [facility] Last Admin: 12/13/16 10:59 Dose: 10 mg Famciclovir (Famvir) 500 mg PO Q8 [facility] Last Admin: 12/13/16 14:19 Dose: 500 mg Famotidine (Pepcid) 20 mg PO 1000,2200 [facility] Last Admin: 12/13/16 11:01 Dose: 20 mg Furosemide (Lasix) 40 mg PO DAILY [facility] Last Admin: 12/13/16 11:00 Dose: 40 mg Ampicillin Sodium/Sulbactam (Sodium 3 gm/ Sodium Chloride) 100 mls @ 200 mls/ hr IVPB Q6 [facility] PRN Reason: Protocol Last Admin: 12/13/16 17:50 Dose: 200 mls/hr Vancomycin HCl (Vancomycin 1gm) 1 gm in 250 mls @ 167 mls/hr IVPB Q12H [facility]J PRN Reason: Protocol Last Admin: 12/13/16 11:01 Dose: 167 mls/hr Insulin Human Lispro (Humalog Low) 0 units SC ACHS TJ PRN Reason: Protocol Last Admin: 12/13/16 16:58 Dose: Not Given Lorazepam (Ativan) 1 mg PO HS TJ PRN Reason: Protocol Last Admin: 12/12/16 21:20 Dose: 1 mg Lorazepam (Ativan) 0.5 mg PO TID TJ PRN Reason: Protocol Last Admin: 12/13/16 17:47 Dose: 0.5 mg - Labs Labs: 12/13/16 08:00 12/13/16 08:00 PT 11.2 Seconds (9.9-11.8) 12/11/16 13:10 INR 1.04 (0.93-1.08) 12/11/16 13:10 APTT 31.7 Seconds (23.7-30.8) H 12/11/16 13:10
[2016-12-14] MEDS: Ampicillin/Sulbactam 3 GM in Sodium Chloride 0.9% 100 ML IVPB SCH ×3 (00:35→11:21)
[2016-12-14] MEDS: Insulin Lispro (humaLOG) LOW Coverage SC SCH ×2 (07:40→11:41)
--- NOTE | 2016-12-14 09:34 | CP.PCM.DIS ---
<LashaunClaudette - Last Filed: 12/14/16 12:00> Provider - Provider Date of Admission: 12/11/16 14:34 Attending physician: Chalo Gomez MD Primary care physician: Patricia Consults: JALEN- Dr Stewart Time Spent in preparation of Discharge (in minutes): 45 Diagnosis - Discharge Diagnosis (1) Cellulitis of right middle finger Status: Acute (2) Dementia Status: Chronic (3) Hypertension Status: Chronic (4) Diabetes Status: Chronic Hospital Course - Lab Results Lab Results: Most Recent Lab Values WBC 8.7 10^3/ul (4.5-11.0) 12/13/16 08:00 RBC 4.47 10^6/uL (3.5-6.1) 12/13/16 08:00 Hgb 12.8 gm/dL (12.0-16.0) 12/13/16 08:00 Hct 38.2 % (36.0-48.0) 12/13/16 08:00 MCV 85.5 fL (80.0-105.0) 12/13/16 08:00 MCH 28.6 pg (25.0-35.0) 12/13/16 08:00 MCHC 33.5 g/dl (31.0-37.0) 12/13/16 08:00 RDW 13.3 % (11.5-14.5) 12/13/16 08:00 Plt Count 212 10^3/uL (120.0-450.0) 12/13/16 08:00 MPV 10.4 fl (7.0-11.0) 12/13/16 08:00 Gran % 69.6 % (50.0-68.0) H 12/13/16 08:00 Lymph % (Auto) 19.7 % (22.0-35.0) L 12/13/16 08:00 [place] % (Auto) 8.8 % (1.0-6.0) H 12/13/16 08:00 Eos % (Auto) 1.7 % (1.5-5.0) 12/13/16 08:00 Baso % (Auto) 0.2 % (0.0-3.0) 12/13/16 08:00 Gran # 6.03 (1.4-6.5) 12/13/16 08:00 Lymph # 1.7 (1.2-3.4) 12/13/16 08:00 [place] # 0.8 (0.1-0.6) H 12/13/16 08:00 Eos # 0.2 (0.0-0.7) 12/13/16 08:00 Baso # 0.02 K/mm3 (0.0-2.0) 12/13/16 08:00 PT 11.2 Seconds (9.9-11.8) 12/11/16 13:10 INR 1.04 (0.93-1.08) 12/11/16 13:10 APTT 31.7 Seconds (23.7-30.8) H 12/11/16 13:10 Sodium 138 mmol/L (132-148) 12/13/16 08:00 Potassium 3.6 mmol/L (3.6-5.0) 12/13/16 08:00 Chloride 101 mmol/L (98-107) 12/13/16 08:00 Carbon Dioxide 28 mmol/L (21-33) 12/13/16 08:00 Anion Gap 13 (10-20) 12/13/16 08:00 BUN 11 mg/dL (7-21) 12/13/16 08:00 Creatinine 0.6 mg/dL (0.5-1.4) 12/13/16 08:00 Est GFR ( Amer) > 60 12/13/16 08:00 Est GFR (Non-Af Amer) > 60 12/13/16 08:00 POC Glucose (mg/dL) 95 mg/dL (65-110) 12/13/16 21:26 Random Glucose 107 mg/dL (70-110) 12/13/16 08:00 Calcium 8.8 mg/dL (8.4-10.5) 12/13/16 08:00 Magnesium 2.0 mg/dL (1.7-2.2) 12/11/16 13:10 Total Bilirubin 0.3 mg/dL (0.2-1.3) 12/11/16 13:10 AST 23 U/L (15-39) 12/11/16 13:10 ALT 22 U/L (7-56) 12/11/16 13:10 Alkaline Phosphatase 93 U/L (38-133) 12/11/16 13:10 Lactate Dehydrogenase 396 U/L (333-699) 12/11/16 13:10 Total Creatine Kinase 42 U/L (35-230) 12/11/16 13:10 Troponin I < 0.01 ng/mL 12/11/16 13:10 Total Protein 7.7 g/dL (5.8-8.3) 12/11/16 13:10 Albumin 3.8 g/dL (3.0-4.8) 12/11/16 13:10 Globulin 3.8 gm/dL 12/11/16 13:10 Albumin/Globulin Ratio 1.0 (1.1-1.8) L 12/11/16 13:10 Lipase 287 U/L (23-300) 12/11/16 13:10 - Hospital Course Hospital Course: Patient is an 89 y/o with pmh of htn, NIDDM2, dementia, and chf sent from [facility] 2nd to right middle finger infection. As per nursing staff, patient had her nails done few days ago, and developed swelling and erythema of the finger. X-ray of the right middle finger revealed soft tissue swelling. Patient had CT of the finger with no osteomyolitis. Patient was placed on vanco and Unasyn, Famvir was added for possible herpetic sis. ID and ortho were following. Leukocytosis trended down, patient was afebrile throughout. The wound culture grew MRSA and enterococcus feacalis. Patient will be discharged back to [facility] to continue po antibiotics. Furthermore, patient had episodes of sundowning, which was managed with ativan po, and 1:1 observation. - Date & Time of H&P Date of H&P: 12/12/16 Time of H&P: 07:08 Discharge Exam - Head Exam Head Exam: NORMAL INSPECTION - Eye Exam Eye Exam: EOMI, Normal appearance, PERRL Pupil Exam: NORMAL ACCOMODATION, PERRL - ENT Exam ENT Exam: Mucous Membranes Moist - Neck Exam Neck exam: Normal Inspection - Respiratory Exam Respiratory Exam: Clear to PA & Lateral, NORMAL BREATHING PATTERN, UNREMARKABLE. absent: Rales, Rhonchi, Wheezes, Respiratory Distress, Stridor - Cardiovascular Exam Cardiovascular Exam: REGULAR RHYTHM, RRR, +S1, +S2, Systolic Murmur - GI/Abdominal Exam GI & Abdominal Exam: Normal Bowel Sounds, Unremarkable. absent: Distended, Rigid, Soft, Tenderness - Extremities Exam Extremities exam: normal inspection - Back Exam Back exam: NORMAL INSPECTION - Neurological Exam Additional comments: Awake and oriented to person, demented. - Psychiatric Exam Psychiatric exam: Flat Affect - Skin Skin Exam: Dry, Intact, Warm Discharge Plan - Discharge Medications Prescriptions: Amoxicillin/Potassium Clav [Augmentin 500-125 Tablet] 1 each PO BID 7 Days Doxycycline Hyclate 100 mg PO BID 7 Days Famciclovir [Famvir] 500 mg PO Q8 #12 tab - Follow Up Plan Condition: FAIR Patient education suggested?: Yes Instructions: MRSA (Methicillin Resistant Staphylococcus Aureus) (DC), Pneumococcal Vaccine for Adults (DC), Dementia (GEN), Fall Prevention (DC) Additional Instructions: Discharge patient to [facility]. Pt seen and exmined by me. I reviewed the note of the resident and agree with it. Sheis going back to [facility]. I spoke to the pt's son to update him. Will finish PO Abx. Spoke to ID and Dr Mathias was comfortable with D/C. Referrals: Chalo Gomez MD [Family Provider] - <Chalo Gomez - Last Filed: 12/14/16 15:04> Provider - Provider Date of Admission: 12/11/16 14:34 Attending physician: Chalo Gomez MD Hospital Course - Lab Results Lab Results: Most Recent Lab Values WBC 8.7 10^3/ul (4.5-11.0) 12/13/16 08:00 RBC 4.47 10^6/uL (3.5-6.1) 12/13/16 08:00 Hgb 12.8 gm/dL (12.0-16.0) 12/13/16 08:00 Hct 38.2 % (36.0-48.0) 12/13/16 08:00 MCV 85.5 fL (80.0-105.0) 12/13/16 08:00 MCH 28.6 pg (25.0-35.0) 12/13/16 08:00 MCHC 33.5 g/dl (31.0-37.0) 12/13/16 08:00 RDW 13.3 % (11.5-14.5) 12/13/16 08:00 Plt Count 212 10^3/uL (120.0-450.0) 12/13/16 08:00 MPV 10.4 fl (7.0-11.0) 12/13/16 08:00 Gran % 69.6 % (50.0-68.0) H 12/13/16 08:00 Lymph % (Auto) 19.7 % (22.0-35.0) L 12/13/16 08:00 [place] % (Auto) 8.8 % (1.0-6.0) H 12/13/16 08:00 Eos % (Auto) 1.7 % (1.5-5.0) 12/13/16 08:00 Baso % (Auto) 0.2 % (0.0-3.0) 12/13/16 08:00 Gran # 6.03 (1.4-6.5) 12/13/16 08:00 Lymph # 1.7 (1.2-3.4) 12/13/16 08:00 [place] # 0.8 (0.1-0.6) H 12/13/16 08:00 Eos # 0.2 (0.0-0.7) 12/13/16 08:00 Baso # 0.02 K/mm3 (0.0-2.0) 12/13/16 08:00 PT 11.2 Seconds (9.9-11.8) 12/11/16 13:10 INR 1.04 (0.93-1.08) 12/11/16 13:10 APTT 31.7 Seconds (23.7-30.8) H 12/11/16 13:10 Sodium 138 mmol/L (132-148) 12/13/16 08:00 Potassium 3.6 mmol/L (3.6-5.0) 12/13/16 08:00 Chloride 101 mmol/L (98-107) 12/13/16 08:00 Carbon Dioxide 28 mmol/L (21-33) 12/13/16 08:00 Anion Gap 13 (10-20) 12/13/16 08:00 BUN 11 mg/dL (7-21) 12/13/16 08:00 Creatinine 0.6 mg/dL (0.5-1.4) 12/13/16 08:00 Est GFR ( Amer) > 60 12/13/16 08:00 Est GFR (Non-Af Amer) > 60 12/13/16 08:00 POC Glucose (mg/dL) 99 mg/dL (65-110) 12/14/16 11:34 Random Glucose 107 mg/dL (70-110) 12/13/16 08:00 Calcium 8.8 mg/dL (8.4-10.5) 12/13/16 08:00 Magnesium 2.0 mg/dL (1.7-2.2) 12/11/16 13:10 Total Bilirubin 0.3 mg/dL (0.2-1.3) 12/11/16 13:10 AST 23 U/L (15-39) 12/11/16 13:10 ALT 22 U/L (7-56) 12/11/16 13:10 Alkaline Phosphatase 93 U/L (38-133) 12/11/16 13:10 Lactate Dehydrogenase 396 U/L (333-699) 12/11/16 13:10 Total Creatine Kinase 42 U/L (35-230) 12/11/16 13:10 Troponin I < 0.01 ng/mL 12/11/16 13:10 Total Protein 7.7 g/dL (5.8-8.3) 12/11/16 13:10 Albumin 3.8 g/dL (3.0-4.8) 12/11/16 13:10 Globulin 3.8 gm/dL 12/11/16 13:10 Albumin/Globulin Ratio 1.0 (1.1-1.8) L 12/11/16 13:10 Lipase 287 U/L (23-300) 12/11/16 13:10
[2016-12-14 09:47] VITALS: BP 171/66; PULSE 68; RESP 18; TEMP 98; O2SAT 92
[2016-12-14] MEDS: Vancomycin 1gm in NS 250ml 1 GM/250 ML BAG IVPB SCH (09:51)
--- NOTE | 2016-12-14 12:55 | PROCN ---
ORTHOPEDIC PROCEDURE REPORT DATE: 12/14/2016 LOCATION: Room 577, bed 2. The patient is an 89-year-old female with paronychia of the distal third digit right hand. She is on antibiotics. The wound does look like it is getting better since the swelling went down. We could see that the base of nail is loose and beginning to remove itself from the nail bed so I trimmed the hanging nail out off the third digit right hand by taking off the germinal matrix of the nail itself to allow the granulation tissue to form better and it be exposed to dressing. Then I cleaned the wound with Betadine and I will ask the nurses to soak it every day in saline and put Betadine back on it and loosely cover it. Probably the smaller the dressing the better because she does like to remove big dressings. So it looks like we unroofed the infected tissue to allow it to granulate in and hopefully she does not bite her nails or contaminate it with the hygiene care. I will follow her closely, but the infection does look better. The swelling is down. The skin in wrinkling and the superficial skin necrosis is removing itself. It will come off better when we soak it in saline and Betadine. Umer Savage DO
[2016-12-14] MEDS: Digoxin 125 mcg (0.125 mg) Tab PO SCH (14:08)
[2016-12-14 14:11] VITALS: PULSE 70
--- NOTE | 2016-12-14 14:21 | CP.PCM.PN ---
Subjective - Date & Time of Evaluation Date of Evaluation: 12/14/16 Time of Evaluation: 10:35 - Subjective Subjective: Comfortable, not in distress. Objective - Vital Signs/Intake and Output Vital Signs (last 24 hours): Temp Pulse Resp BP Pulse Ox 97.8 F 86 20 175/70 H 94 L 12/13/16 16:00 12/13/16 17:47 12/13/16 16:00 12/13/16 17:47 12/13/16 16:00 Intake and Output: 12/14/16 12/14/16 06:59 18:59 Intake Total 60 Balance 60 - Medications Medications: Current Medications Ascorbic Acid (Vitamin C 500 Mg Tab) 500 mg PO DAILY [facility] Last Admin: 12/13/16 11:01 Dose: 500 mg Aspirin (Aspirin Chewable) 81 mg PO DAILY [facility] Last Admin: 12/13/16 10:59 Dose: 81 mg Digoxin (Lanoxin) 0.125 mg PO 1400 [facility] Last Admin: 12/13/16 14:20 Dose: 0.125 mg Diltiazem HCl (Cardizem) 60 mg PO BID [facility] Last Admin: 12/13/16 17:47 Dose: 60 mg Donepezil HCl (Aricept) 10 mg PO DAILY [facility] Last Admin: 12/13/16 10:59 Dose: 10 mg Famciclovir (Famvir) 500 mg PO Q8 [facility] Last Admin: 12/14/16 06:27 Dose: 500 mg Famotidine (Pepcid) 20 mg PO 1000,2200 [facility] Last Admin: 12/13/16 23:00 Dose: 20 mg Furosemide (Lasix) 40 mg PO DAILY [facility] Last Admin: 12/13/16 11:00 Dose: 40 mg Ampicillin Sodium/Sulbactam (Sodium 3 gm/ Sodium Chloride) 100 mls @ 200 mls/ hr IVPB Q6 TJ PRN Reason: Protocol Last Admin: 12/14/16 06:27 Dose: 200 mls/hr Vancomycin HCl (Vancomycin 1gm) 1 gm in 250 mls @ 167 mls/hr IVPB Q12H TJ PRN Reason: Protocol Last Admin: 12/13/16 22:00 Dose: 167 mls/hr Insulin Human Lispro (Humalog Low) 0 units SC ACHS TJ PRN Reason: Protocol Last Admin: 12/13/16 23:00 Dose: Not Given Lorazepam (Ativan) 1 mg PO HS TJ PRN Reason: Protocol Last Admin: 12/13/16 23:00 Dose: 1 mg Lorazepam (Ativan) 0.5 mg PO TID TJ PRN Reason: Protocol Last Admin: 12/13/16 17:47 Dose: 0.5 mg - Labs Labs: 12/13/16 08:00 12/13/16 08:00 PT 11.2 Seconds (9.9-11.8) 12/11/16 13:10 INR 1.04 (0.93-1.08) 12/11/16 13:10 APTT 31.7 Seconds (23.7-30.8) H 12/11/16 13:10 - Constitutional Appears: Non-toxic, No Acute Distress - Head Exam Head Exam: NORMAL INSPECTION - Respiratory Exam Respiratory Exam: Decreased Breath Sounds - Cardiovascular Exam Cardiovascular Exam: +S1, +S2 - GI/Abdominal Exam GI & Abdominal Exam: Soft. absent: Tenderness - Extremities Exam Additional comments: right 3rd finger with dressings in place Assessment and Plan - Assessment and Plan (Free Text) Plan: Assessment Right hand 3rd digit skin and skin structure infection, R/O herpetic sis; growing E. faecalis and Staph aureus DM HTN dementia CAD chronic CHF Plan on Vancomycin and Unasyn (day 3), to complete 5-[address] therapy with Dr[address] Stern, she can be switched to PO Doxycycline and Augmentin to complete therapyalso continue Famciclovir to complete 7 days; reviewed wound cx results; blood cx are negative
== END 2016-12-14 16:06 ==
LOC: ED 12:15 → ERH 14:34 → INTOOBSV 14:34 → ERH 15:33 → 5RSO 16:12
PROVIDERS: ADMIT Internal Medicine Nephrology; ATTEND Internal Medicine Nephrology
DX: L03.011 Cellulitis of right finger (principal); G30.9 Alzheimer's disease, unspecified; F02.80 Dementia in other diseases classified elsewhere, unspecified severity, without behavioral disturbance, psychotic disturbance, mood disturbance, and anxiety; I11.0 Hypertensive heart disease with heart failure; I50.9 Heart failure, unspecified; I25.10 Atherosclerotic heart disease of native coronary artery without angina pectoris; E11.9 Type 2 diabetes mellitus without complications; K21.9 Gastro-esophageal reflux disease without esophagitis; M81.0 Age-related osteoporosis without current pathological fracture; Z79.84 Long term (current) use of oral hypoglycemic drugs; F41.9 Anxiety disorder, unspecified; R00.1 Bradycardia, unspecified; B00.89 Other herpesviral infection; Z78.1 Physical restraint status; B95.2 Enterococcus as the cause of diseases classified elsewhere; B95.62 Methicillin resistant Staphylococcus aureus infection as the cause of diseases classified elsewhere
CPT/HCPCS: 17999; 36415; 71020; 73140; 73200; 80048; 80053; 82550; 82948; 83615; 83690; 83735; 84484; 85025; 85610; 85730; 87040; 87070; 87181; 92610; 93005; 96365; 96375; 99284; G0378; G8996; G8997; J0295; J2060